=== PATIENT | female | born 1995 | race Hispanic/Latino ===

== ENCOUNTER 2019-11-27 18:23 | Observation (INO) | payer MEDICAID ==
[~2019-11-27] VITALS: Ht 162.6 cm; Wt 59.0 kg
[2019-11-27 19:02] LABS: APPEARANCE,URINE Cloudy (CLEAR); BILIRUBIN,URINE Negative (NEGATIVE); COLOR,URINE Yellow (YELLOW); GLUCOSE, URINE (UA) Negative (NEGATIVE); KETONES,URINE Negative (NEGATIVE); LEUKOCYTE ESTERASE ,URINE Large (NEGATIVE); NITRATE,URINE Negative (NEGATIVE); OCCULT BLOOD,URINE Negative (NEGATIVE); PH,URINE 6.5 (5.0-8.0); PROTEIN,URINE Negative (NEGATIVE)
[2019-11-27 19:13] LABS: RBC,URINE 0-1 /HPF (0-1)
[2019-11-27 19:14] LABS: BACTERIA,URINE Few /HPF (None Seen); SQUAMOUS EPITHELIAL CELL,UR Moderate /HPF (0-2)
[2019-11-27 20:06] VITALS: BP 101/58
== END 2019-11-27 20:28 | disposition home or self-care (01) ==
LOC: EDH 18:23 → LDH 18:28
DX: O42.913 Preterm premature rupture of membranes, unspecified as to length of time between rupture and onset of labor, third trimester (principal); R10.2 Pelvic and perineal pain; Z3A.36 36 weeks gestation of pregnancy; Z88.0 Allergy status to penicillin
CPT/HCPCS: 81001; 87088; 99284; G0378

== ENCOUNTER 2019-11-28 19:35 | Inpatient (IN) | payer MEDICAID ==
[~2019-11-28] VITALS: Ht 162.6 cm; Wt 59.4 kg
[2019-11-28] MEDS ORDERED: LACTATED RINGERS 1000ML IV PRN (20:00)
[2019-11-28] MEDS ORDERED: LACTATED RINGERS 1000ML 1,000 ML IV PRN (20:31)
[2019-11-28 20:33] LABS: APPEARANCE,URINE Clear (CLEAR); BILIRUBIN,URINE Negative (NEGATIVE); COLOR,URINE Yellow (YELLOW); GLUCOSE, URINE (UA) Negative (NEGATIVE); KETONES,URINE Negative (NEGATIVE); LEUKOCYTE ESTERASE ,URINE Moderate (NEGATIVE); NITRATE,URINE Negative (NEGATIVE); OCCULT BLOOD,URINE Negative (NEGATIVE); PH,URINE 8.5 (5.0-8.0); PROTEIN,URINE Negative (NEGATIVE)
[2019-11-28 20:41] LABS: AMPHET/METH SCREEN,URINE NEGATIVE (NEGATIVE); BARBITURATE SCREEN, URINE NEGATIVE (NEGATIVE); BENZODIAZEPINES SCREEN,URINE NEGATIVE (NEGATIVE); CANNABINOID SCREEN,URINE NEGATIVE (NEGATIVE); COCAINE SCREEN,URINE NEGATIVE (NEGATIVE); OPIATE SCREEN,URINE NEGATIVE (NEGATIVE); PHENCYCLIDINE SCREEN,URINE NEGATIVE (NEGATIVE)
[2019-11-28 20:42] LABS: BACTERIA,URINE Few /HPF (None Seen); MUCUS,URINE Few LPF (None Seen); RBC,URINE 0-1 /HPF (0-1); SQUAMOUS EPITHELIAL CELL,UR Moderate /HPF (0-2)
[2019-11-28 21:00] VITALS: BP 103/54
[2019-11-28 22:22] LABS: HEMATOCRIT 38.6 % (36-48); MEAN CORPUSCULAR HEMOGLOBIN 30.2 pg (27.0-33.0); MEAN CORPUSCULAR HGB CONC 33.4 g/dL (32.0-36.0); MEAN CORPUSCULAR VOLUME 90.4 fL (79-99); RED BLOOD CELL COUNT(AUTO) 4.27 MIL/uL (4.00-5.50); RED CELL DISTRIBUTION WIDTH 12.6 % (11.0-15.5); WHITE BLOOD COUNT (AUTO) 10.7 K/uL (4.8-10.8)
[2019-11-28] MEDS ORDERED: MEPERIDINE-PF 50 MG/ML SYG ONE (22:25)
[2019-11-28] MEDS ORDERED: MEPERIDINE-PF 50 MG/ML SYG IVP ONE (22:30)
[2019-11-28] MEDS ORDERED: OXYTOCIN-LR 20 UNITS/1000 ML 1,000 ML IV ONE (22:40)
[2019-11-28] MEDS ORDERED: LIDOCAINE HCL 1% 20 ML VIAL ONE (22:40)
[2019-11-28] MEDS ORDERED: LANOLIN 30GM OINTMENT TP PRN (23:00)
[2019-11-28] MEDS ORDERED: DIPH,PERTUSS(ACELL),TET VAC/PF 0.5 ML VIAL IM PRN (23:00)
[2019-11-28] MEDS ORDERED: WITCH HAZEL 1 PAD TP PRN (23:00)
[2019-11-28] MEDS ORDERED: BENZOCAINE/LANOLIN/ALOE VERA 60 ML AEROSOL TP PRN (23:00)
[2019-11-28] MEDS ORDERED: ACETAMINOPHEN-CODEINE 300/30MG TAB PO PRN (23:00)
[2019-11-28] MEDS: OXYTOCIN-LR 20 UNITS/1000 ML 1,000 ML IV SCH (23:37)
[2019-11-28] MEDS: PROMETHAZINE HCL 25 MG/ML 1ML AMPULE IM SCH (23:38)
[2019-11-29] VITALS (7 sets, daily range): BP systolic 92–125; BP diastolic 53–68
[2019-11-29] MEDS: IBUPROFEN 600 MG TABLET PO PRN ×2 (01:15→08:11)
[2019-11-29] MEDS ORDERED: PNV1TABL17 PO (08:01)
[2019-11-29] MEDS: DOCUSATE SODIUM 100 MG CAP PO SCH ×2 (08:09→21:20)
[2019-11-29] MEDS: PROMETHAZINE HCL 25 MG/ML 1ML AMPULE IM SCH (22:30)
[2019-11-30 03:54] VITALS: BP 94/51
[2019-11-30 07:15] VITALS: BP 98/62
[2019-11-30] MEDS: DOCUSATE SODIUM 100 MG CAP PO SCH (08:54)
[2019-11-30] MEDS: IBUPROFEN 600 MG TABLET PO PRN (08:56)
[2019-11-30 09:13] LABS: HEPATITIS Bs ANTIGEN SCREEN P Negative (Negative)
[2019-11-30 11:43] VITALS: BP 106/59
--- NOTE | 2019-11-30 11:45 | NUR ---
WAS DISCHARGED AND DISCHARGE INSTRUCTIONS GIVEN TO PATIENT AT THIS TIME. SCRIPT FOR PAIN MANAGEMENT GIVEN AND INSTRUCTED ON DOSAGE AND FREQUENCY OF MEDICATIONS.
--- NOTE | 2019-11-30 12:10 | NUR ---
PATIENT WAS TAKEN VIA W/C CARRYING BABY IN ARMS TO FAMILY VEHICLE AND WAS DISCHARGED TO HER MOTHER IN STABLE CONDITION. PATIENT DENIES PAIN.
== END 2019-11-30 12:10 | disposition home or self-care (01) | DRG 560 ==
LOC: EDH 19:35 → OBSVTOIN 19:55 → LDH 19:55 → WSH 11-29 01:21
PROC: 10E0XZZ Delivery of Products of Conception, External Approach (ICD-10-PCS; principal; 2019-11-28)
PROC: 0KQM0ZZ Repair Perineum Muscle, Open Approach (ICD-10-PCS; 2019-11-28)
PROC: 3E0234Z Introduction of Serum, Toxoid and Vaccine into Muscle, Percutaneous Approach (ICD-10-PCS; 2019-11-28)
DX: O60.14X0 Preterm labor third trimester with preterm delivery third trimester, not applicable or unspecified (principal); Z37.0 Single live birth; O70.1 Second degree perineal laceration during delivery; Z23 Encounter for immunization; Z3A.36 36 weeks gestation of pregnancy
CPT/HCPCS: 36415; 80305; 81001; 85027; 86592; 86850; 86900; 86901; 87088; 87340; G0378; J2175; J2590; J7120

== ENCOUNTER → 2021-10-08 | Outpatient (CLI) | payer MEDICAID ==
[~2021-10-08] VITALS: Ht 162.6 cm; Wt 57.2 kg
[~2021-10-08] MED LIST: CYCL10TA16 PO; NAPR-1180 PO
[2021-10-08 10:04] LABS: BASOPHILS % (AUTO) 0.4 % (0.0-5.0); EOSINOPHILS % (AUTO) 1.5 % (0.0-8.0); HEMATOCRIT 40.4 % (36-48); LYMPHOCYTES % (AUTO) 33.8 % (21.0-51.0); MEAN CORPUSCULAR HEMOGLOBIN 29.3 pg (27.0-33.0); MEAN CORPUSCULAR HGB CONC 31.4 g/dL (32.0-36.0); MEAN CORPUSCULAR VOLUME 93.3 fL (79-99); MONOCYTES % (AUTO) 7.4 % (3.0-13.0); NEUTROPHILS % (AUTO) 56.7 % (40.0-77.0); PLATELET COUNT (AUTO) 211 K/uL (130-400); RED BLOOD CELL COUNT(AUTO) 4.33 MIL/uL (4.00-5.50); RED CELL DISTRIBUTION WIDTH 14.6 % (11.0-15.5); WHITE BLOOD COUNT (AUTO) 4.6 K/uL (4.8-10.8)
[2021-10-13 08:41] VITALS: BP 100/58
== END | disposition home or self-care (01) ==
LOC: DAH 10:00 → EDSTATUS 10-14 08:00 → DAH 10-14 10:00
PROVIDERS: ATTEND Specialist
DX: Z30.2 Encounter for sterilization (principal); Z79.01 Long term (current) use of anticoagulants; Z53.8 Procedure and treatment not carried out for other reasons
CPT/HCPCS: 36415; 84703; 85025; 86850; 86900; 86901; 87635; A6260; C9803

== ENCOUNTER 2022-06-14 19:56 | Observation (INO) | payer MEDICAID ==
[~2022-06-14] VITALS: Ht 162.6 cm; Wt 55.8 kg
[2022-06-14] MEDS ORDERED: MAGNESIUM SULFATE 40GM/1000ML 1,000 ML IV PRN (22:00)
[2022-06-14] MEDS ORDERED: CALCIUM GLUC 1GM/10ML VIAL IV PRN (22:00)
[2022-06-14] MEDS ORDERED: MAGNESIUM 4GM PREMIX 100ML 100 ML IV ONE (22:00)
[2022-06-14] MEDS ORDERED: MAGNESIUM 4GM PREMIX 100ML 100 ML IV SCH (22:00)
[2022-06-14] MEDS ORDERED: MEPERIDINE-PF 50 MG/ML SYG ONE (22:19)
[2022-06-14] MEDS ORDERED: PROMETHAZINE HCL 25 MG/ML 1ML AMPULE IM ONE (22:20)
[2022-06-14] MEDS ORDERED: MAGNESIUM SULFATE 40GM/1000ML 1,000 ML IV ONE (22:28)
[2022-06-14] MEDS ORDERED: LACTATED RINGERS 1000ML 1,000 ML IV ONE (22:28)
[2022-06-14 22:29] LABS: HEMATOCRIT 32.7 % (36-48); MEAN CORPUSCULAR HEMOGLOBIN 30.4 pg (27.0-33.0); MEAN CORPUSCULAR HGB CONC 33.6 g/dL (32.0-36.0); MEAN CORPUSCULAR VOLUME 90.3 fL (79-99); RED BLOOD CELL COUNT(AUTO) 3.62 MIL/uL (4.00-5.50); RED CELL DISTRIBUTION WIDTH 12.7 % (11.0-15.5); WHITE BLOOD COUNT (AUTO) 8.5 K/uL (4.8-10.8)
[2022-06-14] MEDS ORDERED: PROMETHAZINE HCL 25 MG/ML 1ML AMPULE IM PRN (22:30)
[2022-06-14] MEDS ORDERED: MEPERIDINE-PF 50 MG/ML SYG IVP PRN (22:30)
[2022-06-14 22:35] LABS: APPEARANCE,URINE CLEAR (CLEAR); BILIRUBIN,URINE NEGATIVE (NEGATIVE); COLOR,URINE LIGHT-YELLOW (YELLOW); GLUCOSE, URINE (UA) NEGATIVE (NEGATIVE); KETONES,URINE 150 mg/dL (NEGATIVE); LEUKOCYTE ESTERASE ,URINE NEGATIVE Leu/uL (NEGATIVE); NITRATE,URINE NEGATIVE (NEGATIVE); OCCULT BLOOD,URINE NEGATIVE (NEGATIVE); PH,URINE 6.5 (5.0-8.0); PROTEIN,URINE 20 mg/dL (NEGATIVE)
[2022-06-14 22:37] LABS: MUCUS,URINE RARE LPF (None Seen); SQUAMOUS EPITHELIAL CELL,UR RARE /HPF (0-2)
[2022-06-14 22:55] LABS: AMPHET/METH SCREEN,URINE NEGATIVE (NEGATIVE); BARBITURATE SCREEN, URINE NEGATIVE (NEGATIVE); BENZODIAZEPINES SCREEN,URINE NEGATIVE (NEGATIVE); CANNABINOID SCREEN,URINE NEGATIVE (NEGATIVE); COCAINE SCREEN,URINE NEGATIVE (NEGATIVE); OPIATE SCREEN,URINE NEGATIVE (NEGATIVE); PHENCYCLIDINE SCREEN,URINE NEGATIVE (NEGATIVE)
[2022-06-14] MEDS: CELESTONE SOLUSPAN 6 MG/ML 5ML VIAL IM SCH (23:01)
[2022-06-15 01:38] VITALS: BP 109/55
[2022-06-15] MEDS ORDERED: LACTATED RINGERS 1000ML 1,000 ML IV SCH (02:30)
[2022-06-15] MEDS ORDERED: ACETAMINOPHEN WITH CODEINE 1 TAB TAB PO PRN (13:00)
[2022-06-15 14:26] LABS: RAPID PLASMA REAGIN NONREACTIVE (NONREACTIVE)
[2022-06-15] MEDS: ACETAMINOPHEN WITH CODEINE 1 TAB TAB PO PRN ×2 (18:18→23:48)
[2022-06-15] MEDS: CELESTONE SOLUSPAN 6 MG/ML 5ML VIAL IM SCH (23:24)
[2022-06-16] MEDS ORDERED: BUTORPHANOL TARTRATE 1 MG/ML IVP PRN
[2022-06-16] MEDS ORDERED: BUTORPHANOL TARTRATE 2 MG/ML ONE (00:20)
[2022-06-16] MEDS ORDERED: LACTATED RINGERS 1000ML 1,000 ML IV SCH (06:00)
[2022-06-16] MEDS: ACETAMINOPHEN WITH CODEINE 1 TAB TAB PO PRN (08:39)
== END 2022-06-16 09:10 | disposition home or self-care (01) ==
LOC: EDH 19:56 → LDH 19:57 → INTOOBSV 19:57 → OBSVTOIN 19:57
PROVIDERS: ADMIT Obstetrics & Gynecology; ATTEND Obstetrics & Gynecology
DX: O62.9 Abnormality of forces of labor, unspecified (principal); O99.612 Diseases of the digestive system complicating pregnancy, second trimester; K08.89 Other specified disorders of teeth and supporting structures; Z3A.27 27 weeks gestation of pregnancy
CPT/HCPCS: 96372 ×3; 96365; 96366 ×2; 80305; 85027; 86592; 86850; 86900; 86901; 87340; 86701; 87390; 81001; 36415; 76805; 96375; 76819; 96361; G0378 ×37; J7120; J0702; J2550 ×2; J2175 ×2; J3475 ×2; A4314; A4510; J0595

== ENCOUNTER 2022-06-20 14:43 | Observation (INO) | payer MEDICAID ==
[~2022-06-20] VITALS: Ht 162.6 cm; Wt 56.7 kg
[2022-06-20 14:44] VITALS: BP 111/62
[2022-06-20 15:18] LABS: APPEARANCE,URINE CLOUDY (CLEAR); BILIRUBIN,URINE NEGATIVE (NEGATIVE); COLOR,URINE LIGHT-YELLOW (YELLOW); GLUCOSE, URINE (UA) NEGATIVE (NEGATIVE); KETONES,URINE NEGATIVE (NEGATIVE); LEUKOCYTE ESTERASE ,URINE 500 Leu/uL (NEGATIVE); NITRATE,URINE NEGATIVE (NEGATIVE); OCCULT BLOOD,URINE NEGATIVE (NEGATIVE); PH,URINE 6.5 (5.0-8.0); PROTEIN,URINE NEGATIVE (NEGATIVE); UROBILINOGEN,URINE 0.2 mg/dL (0.2-1.0)
[2022-06-20] MEDS: LACTATED RINGERS 1000ML 1,000 ML IV SCH ×2 (15:25→17:13)
[2022-06-20 15:29] LABS: BACTERIA,URINE RARE /HPF (None Seen); MUCUS,URINE RARE LPF (None Seen); OTHER CASTS, URINE 1 /LPF (None Seen); SQUAMOUS EPITHELIAL CELL,UR MANY /HPF (0-2); WBC,URINE 26-50 /HPF (0-1)
[2022-06-20 17:04] LABS: HEMATOCRIT 29.2 % (36-48); MEAN CORPUSCULAR HEMOGLOBIN 30.3 pg (27.0-33.0); MEAN CORPUSCULAR HGB CONC 32.9 g/dL (32.0-36.0); MEAN CORPUSCULAR VOLUME 92.1 fL (79-99); RED BLOOD CELL COUNT(AUTO) 3.17 MIL/uL (4.00-5.50); RED CELL DISTRIBUTION WIDTH 13.2 % (11.0-15.5)
[2022-06-20] MEDS: ACETAMINOPHEN 500 MG TABLET PO PRN (20:29)
[2022-06-20] MEDS ORDERED: MAGNESIUM 4GM PREMIX 100ML 100 ML IV SCH (22:00)
[2022-06-20] MEDS ORDERED: CALCIUM GLUC 1GM/10ML VIAL IV PRN (22:00)
[2022-06-20] MEDS ORDERED: MAGNESIUM SULFATE 40GM/1000ML 1,000 ML IV PRN (22:00)
[2022-06-21] MEDS: ACETAMINOPHEN 500 MG TABLET PO PRN (02:05)
[2022-06-21] MEDS: LACTATED RINGERS 1000ML 1,000 ML IV SCH (04:19)
== END 2022-06-21 12:45 | disposition home or self-care (01) ==
LOC: EDH 14:43 → LDH 14:53 → INTOOBSV 14:53 → OBSVTOIN 14:53
PROVIDERS: ADMIT Obstetrics & Gynecology; ATTEND Obstetrics & Gynecology
DX: O62.9 Abnormality of forces of labor, unspecified (principal); Z3A.27 27 weeks gestation of pregnancy
CPT/HCPCS: 96361 ×3; 96365; 96366 ×2; 96360; 85027; 87088; 81001; 36415; G0378 ×22; G0379; J7120 ×4; J3475 ×2; A4600; A4510; A4314

== ENCOUNTER 2022-07-05 16:33 | Observation (INO) | payer MEDICAID ==
[~2022-07-05] VITALS: Ht 152.4 cm; Wt 59.9 kg
[2022-07-05] MEDS ORDERED: MAGNESIUM 4GM PREMIX 100ML 100 ML IV SCH (17:30)
[2022-07-05] MEDS ORDERED: CALCIUM GLUC 1GM/10ML VIAL IV PRN (17:30)
[2022-07-05] MEDS ORDERED: MAGNESIUM SULFATE 40GM/1000ML 1,000 ML IV PRN (17:30)
[2022-07-05] MEDS ORDERED: LACTATED RINGERS 1000ML 1,000 ML IV ONE (17:47)
[2022-07-05] MEDS: CLINDAMYCIN IVPB 900MG/50ML 50 ML IV SCH (18:45)
[2022-07-05 19:01] LABS: HEMATOCRIT 33.9 % (36-48); MEAN CORPUSCULAR HEMOGLOBIN 29.2 pg (27.0-33.0); MEAN CORPUSCULAR HGB CONC 32.4 g/dL (32.0-36.0); MEAN CORPUSCULAR VOLUME 89.9 fL (79-99); RED BLOOD CELL COUNT(AUTO) 3.77 MIL/uL (4.00-5.50); WHITE BLOOD COUNT (AUTO) 6.7 K/uL (4.8-10.8)
[2022-07-05 19:13] LABS: APPEARANCE,URINE CLOUDY (CLEAR); BILIRUBIN,URINE NEGATIVE (NEGATIVE); COLOR,URINE LIGHT-ORANGE (YELLOW); GLUCOSE, URINE (UA) NEGATIVE (NEGATIVE); KETONES,URINE NEGATIVE (NEGATIVE); LEUKOCYTE ESTERASE ,URINE NEGATIVE Leu/uL (NEGATIVE); NITRATE,URINE NEGATIVE (NEGATIVE); OCCULT BLOOD,URINE NEGATIVE (NEGATIVE); PROTEIN,URINE NEGATIVE (NEGATIVE); UROBILINOGEN,URINE 0.2 mg/dL (0.2-1.0)
[2022-07-05 19:21] LABS: BACTERIA,URINE FEW /HPF (None Seen); MUCUS,URINE RARE LPF (None Seen); OTHER CASTS, URINE 1 /LPF (None Seen); RBC,URINE 0-1 /HPF (0-1); SQUAMOUS EPITHELIAL CELL,UR RARE /HPF (0-2); YEAST,URINE BUDDING FEW /HPF (None Seen)
[2022-07-05] MEDS ORDERED: LACTATED RINGERS 1000ML 1,000 ML IV SCH (23:30)
[2022-07-06] MEDS: CLINDAMYCIN IVPB 900MG/50ML 50 ML IV SCH (01:33)
[2022-07-06 12:28] LABS: RAPID PLASMA REAGIN NONREACTIVE (NONREACTIVE)
== END 2022-07-06 11:45 | disposition home or self-care (01) ==
LOC: LDH 16:58 → INTOOBSV 16:58
PROVIDERS: ADMIT Obstetrics & Gynecology; ATTEND Obstetrics & Gynecology
DX: O60.03 Preterm labor without delivery, third trimester (principal); Z3A.30 30 weeks gestation of pregnancy
CPT/HCPCS: 96366 ×3; 96365; 86592; 96368; 85027; 86850; 86900; 86901; 87088; 86701; 87390; 81001; 36415; 96361; J7120; J3490 ×2; G0378; J3475 ×2

== ENCOUNTER 2022-08-06 09:31 | Observation (INO) | payer MEDICAID ==
[~2022-08-06] VITALS: Ht 162.6 cm; Wt 57.6 kg
[2022-08-06] MEDS ORDERED: LACTATED RINGERS 1000ML 1,000 ML IV PRN (09:35)
[2022-08-06 10:04] LABS: APPEARANCE,URINE CLOUDY (CLEAR); BILIRUBIN,URINE NEGATIVE (NEGATIVE); COLOR,URINE LIGHT-YELLOW (YELLOW); GLUCOSE, URINE (UA) NEGATIVE (NEGATIVE); KETONES,URINE 5 mg/dL (NEGATIVE); LEUKOCYTE ESTERASE ,URINE 500 Leu/uL (NEGATIVE); NITRATE,URINE NEGATIVE (NEGATIVE); OCCULT BLOOD,URINE NEGATIVE (NEGATIVE); PROTEIN,URINE NEGATIVE (NEGATIVE); UROBILINOGEN,URINE 0.2 mg/dL (0.2-1.0)
[2022-08-06 10:07] LABS: AMPHET/METH SCREEN,URINE NEGATIVE (NEGATIVE); BARBITURATE SCREEN, URINE NEGATIVE (NEGATIVE); BENZODIAZEPINES SCREEN,URINE NEGATIVE (NEGATIVE); CANNABINOID SCREEN,URINE NEGATIVE (NEGATIVE); COCAINE SCREEN,URINE NEGATIVE (NEGATIVE); OPIATE SCREEN,URINE NEGATIVE (NEGATIVE); PHENCYCLIDINE SCREEN,URINE NEGATIVE (NEGATIVE)
[2022-08-06 10:09] LABS: MUCUS,URINE RARE LPF (None Seen); RBC,URINE 0-1 /HPF (0-1); SQUAMOUS EPITHELIAL CELL,UR MOD /HPF (0-2)
[2022-08-06 10:26] VITALS: BP 104/65
== END 2022-08-06 11:55 | disposition home or self-care (01) ==
LOC: LDH 09:31
PROVIDERS: ADMIT Obstetrics & Gynecology; ATTEND Obstetrics & Gynecology
DX: O60.03 Preterm labor without delivery, third trimester (principal); Z3A.34 34 weeks gestation of pregnancy; Z79.899 Other long term (current) drug therapy
CPT/HCPCS: 59025; 96360; 80305; 87088; 81001; G0378 ×2; G0379

== ENCOUNTER 2022-11-11 19:12 | Emergency (ER) | payer MEDICAID ==
[~2022-11-11] VITALS: Ht 162.6 cm; Wt 53.1 kg
[2022-11-11 20:23] VITALS: BP 98/55
[2022-11-11 23:00] LABS: BASOPHILS % (AUTO) 0.3 % (0.0-5.0); HEMATOCRIT 38.7 % (36-48); MEAN CORPUSCULAR HEMOGLOBIN 29.5 pg (27.0-33.0); MEAN CORPUSCULAR HGB CONC 32.8 g/dL (32.0-36.0); MONOCYTES % (AUTO) 10.2 % (3.0-13.0); NEUTROPHILS % (AUTO) 79.9 % (40.0-77.0); PLATELET COUNT (AUTO) 169 K/uL (130-400); RED CELL DISTRIBUTION WIDTH 14.6 % (11.0-15.5); WHITE BLOOD COUNT (AUTO) 10.9 K/uL (4.8-10.8)
[2022-11-11] MEDS ORDERED: DiphenhydrAMINE HCL 50 MG/ML VIAL IV ONE (23:00)
[2022-11-11] MEDS ORDERED: 0.9%NACL 1000ML 1,000 ML IV ONE (23:00)
[2022-11-11] MEDS ORDERED: ONDANSETRON 4MG INJ IVP ONE (23:00)
[2022-11-11] MEDS ORDERED: KETOROLAC 30MG VIAL (30MG/ML) IVP ONE (23:00)
[2022-11-11] MEDS ORDERED: METOCLOPRAMIDE 10 MG/2 ML VIAL IVP ONE (23:00)
[2022-11-11 23:15] LABS: CREATININE 1.2 mg/dL (0.5-1.5); POTASSIUM 3.9 mmol/L (3.5-5.1)
[2022-11-11 23:19] LABS: ALBUMIN 3.4 g/dL (3.5-5.0); TOTAL PROTEIN, SERUM 7.5 g/dL (6.0-8.3)
[2022-11-12] MEDS ORDERED: ONDA4TAB10 PO (00:34)
[2022-11-12] MEDS ORDERED: IBUP-2070 PO (00:34)
== END 2022-11-12 00:50 | disposition home or self-care (01) ==
LOC: EDH 19:12
DX: G43.909 Migraine, unspecified, not intractable, without status migrainosus (principal); B34.9 Viral infection, unspecified; R11.2 Nausea with vomiting, unspecified; Z20.822 Contact with and (suspected) exposure to COVID-19; Z88.0 Allergy status to penicillin
CPT/HCPCS: 99284; 96374; 96375; 87635; 96361; 80053; 83690; 85025; 87040 ×2; 87804 ×2; 83605; 81025; 36415; C9803; J1200; J7030; J2405; J1885; J2765

== ENCOUNTER 2023-01-21 11:21 | Emergency (ER) | payer MEDICAID ==
[~2023-01-21] VITALS: Ht 162.6 cm; Wt 52.6 kg
[~2023-01-21 11:21] MED LIST changes: -CYCL10TA16 PO; +IBUP-2070 PO; -NAPR-1180 PO; +ONDA4TAB10 PO
[2023-01-21 11:22] VITALS: BP 107/70; PULSE 70; RESP 16
[2023-01-21 11:51] LABS: RAPID GROUP A STREP negative (NEGATIVE)
[2023-01-21 11:54] LABS: APPEARANCE,URINE CLOUDY (CLEAR); BILIRUBIN,URINE NEGATIVE (NEGATIVE); COLOR,URINE LIGHT-YELLOW (YELLOW); GLUCOSE, URINE (UA) NEGATIVE (NEGATIVE); KETONES,URINE NEGATIVE (NEGATIVE); LEUKOCYTE ESTERASE ,URINE 500 Leu/uL (NEGATIVE); NITRATE,URINE NEGATIVE (NEGATIVE); OCCULT BLOOD,URINE NEGATIVE (NEGATIVE); PH,URINE 6.5 (5.0-8.0); PROTEIN,URINE NEGATIVE (NEGATIVE); UROBILINOGEN,URINE 0.2 mg/dL (0.2-1.0)
[2023-01-21 11:55] LABS: SARS-CoV-2, RNA, NAAT NEGATIVE SARS CoV-2 (NEGATIVE)
[2023-01-21 11:57] LABS: HCG,QUALITATIVE URINE NEGATIVE (NEGATIVE)
[2023-01-21 12:01] LABS: INFLUENZA TYPE A Negative For Type A (NEGATIVE); INFLUENZA TYPE B Negative For Type B (NEGATIVE)
[2023-01-21 12:19] LABS: ADD UA MICROSCOPIC YES
[2023-01-21 12:22] LABS: BACTERIA,URINE RARE /HPF (None Seen); MUCUS,URINE RARE LPF (None Seen); SQUAMOUS EPITHELIAL CELL,UR MANY /HPF (0-2); WBC,URINE 51-100 /HPF (0-1); YEAST,URINE BUDDING RARE /HPF (None Seen)
[2023-01-21] MEDS ORDERED: NITR100C4 PO (15:24)
[2023-01-21] MEDS ORDERED: FAMO-136 PO (15:25)
== END 2023-01-21 15:40 | disposition home or self-care (01) ==
LOC: EDH 11:21
DX: N39.0 Urinary tract infection, site not specified (principal); Z20.822 Contact with and (suspected) exposure to COVID-19
CPT/HCPCS: 99283; 87635; 87077; 87088; 87186; 87880; 87804 ×2; 81001; 81025; C9803

== ENCOUNTER 2023-02-11 16:25 | Emergency (ER) | payer MEDICAID ==
[~2023-02-11] VITALS: Ht 162.6 cm; Wt 51.7 kg
[~2023-02-11 16:25] MED LIST changes: +FAMO-136 PO; +NITR100C4 PO
[2023-02-11 18:02] LABS: BASOPHILS # (AUTO) 0.02 K/uL (0.00-0.20); BASOPHILS % (AUTO) 0.2 % (0.0-5.0); EOSINOPHILS # (AUTO) 0.01 K/uL (0.00-0.70); EOSINOPHILS % (AUTO) 0.1 % (0.0-8.0); HEMATOCRIT 37.8 % (36-48); IMMATURE GRANULOCYTE ABSOLUTE 0.06 K/uL (0-1); LYMPHOCYTES # (AUTO) 1.8 K/uL (1.0-4.8); MEAN CORPUSCULAR HEMOGLOBIN 29.1 pg (27.0-33.0); MEAN CORPUSCULAR HGB CONC 32.3 g/dL (32.0-36.0); MEAN CORPUSCULAR VOLUME 90.2 fL (79-99); MONOCYTES # (AUTO) 0.6 K/uL (0.1-1.0); MONOCYTES % (AUTO) 4.8 % (3.0-13.0); NEUTROPHILS # (AUTO) 10.4 K/uL (1.8-7.7); NEUTROPHILS % (AUTO) 80.4 % (40.0-77.0); PLATELET COUNT (AUTO) 259 K/uL (130-400); RED BLOOD CELL COUNT(AUTO) 4.19 MIL/uL (4.00-5.50); RED CELL DISTRIBUTION WIDTH 14.7 % (11.0-15.5); WHITE BLOOD COUNT (AUTO) 12.9 K/uL (4.8-10.8)
[2023-02-11 18:13] LABS: CREATININE 0.8 mg/dL (0.5-1.5); POTASSIUM 3.7 mmol/L (3.5-5.1)
[2023-02-11 18:18] LABS: APPEARANCE,URINE CLOUDY (CLEAR); BILIRUBIN,URINE NEGATIVE (NEGATIVE); COLOR,URINE YELLOW (YELLOW); GLUCOSE, URINE (UA) NEGATIVE (NEGATIVE); KETONES,URINE 40 mg/dL (NEGATIVE); LEUKOCYTE ESTERASE ,URINE 500 Leu/uL (NEGATIVE); NITRATE,URINE NEGATIVE (NEGATIVE); PROTEIN,URINE 100 mg/dL (NEGATIVE); UROBILINOGEN,URINE 6 mg/dL (0.2-1.0)
[2023-02-11 18:18] LABS: BILIRUBIN,TOTAL 0.3 mg/dL (0.2-1.0); TOTAL PROTEIN, SERUM 7.6 g/dL (6.0-8.3)
[2023-02-11 18:20] LABS: ADD UA MICROSCOPIC YES
[2023-02-11 18:22] LABS: BACTERIA,URINE FEW /HPF (None Seen); MUCUS,URINE MOD LPF (None Seen); SQUAMOUS EPITHELIAL CELL,UR MOD /HPF (0-2); UNCLASSIFIED CRYSTAL 2 /HPF (None Seen); WBC,URINE 51-100 /HPF (0-1)
[2023-02-11] MEDS ORDERED: LEVOFLOXACIN 500 MG/D5W 100 ML 100 ML IV SCH (20:30)
[2023-02-11] MEDS ORDERED: 0.9%NACL 1000ML 1,000 ML IV ONE (20:30)
[2023-02-11] MEDS ORDERED: IBUPROFEN 600 MG TABLET PO ONE (21:30)
[2023-02-11 21:33] VITALS: TEMP 99.8
[2023-02-11] MEDS ORDERED: IOHEXOL 350 MG/ML 100ML INFUS..BTL IV ONE (21:58)
[2023-02-11] MEDS ORDERED: CIPR-278 PO (23:06)
[2023-02-11] MEDS ORDERED: IBUP-2070 PO (23:06)
[2023-02-11 23:16] VITALS: BP 114/71; PULSE 72; RESP 16; O2SAT 100
== END 2023-02-11 23:22 | disposition home or self-care (01) ==
LOC: EDH 16:25
DX: N39.0 Urinary tract infection, site not specified (principal); G43.909 Migraine, unspecified, not intractable, without status migrainosus; Z88.0 Allergy status to penicillin
CPT/HCPCS: 99285; 96365; 71270; 71045; 96366; 80053; 85025; 85378; 87077; 87088; 87186; 86140; 81001; 36415; J1956; Q9967